=== PATIENT | male | born 1955 | race Caucasian/White ===

== ENCOUNTER → 2016-09-19 | Day surgery (SDC) | payer OTHER ==
[~2016-09-19] MED LIST: LEVO88TA2 PO; LIDOCAINE 1%/EPI 1:100,000 20 ML VIAL. IJ ONE; LIDOCAINE 1%/EPI 1:100,000 20 ML VIAL. ONE
[2016-09-19 09:55] VITALS: BP 141/85
--- NOTE | 2016-09-19 10:59 | PDOC ---
BRIEF OPERATIVE NOTE Date: Sep 19, 2016 Pre-Op Diagnosis Left forearm mass Post-Op Diagnosis Same Procedure Performed Excision of mass Surgeon Ricco Anesthesia Type: Local Blood Loss 5ml Specimens Obtained Left forearm skin mass Findings as above Complications None LISA PANTOJA MD Sep 19, 2016 10:59
--- NOTE | 2016-09-19 11:00 | DISCH ---
DISCHARGE INSTRUCTIONS Condition on Discharge Condition on Discharge: Stable Activity After Discharge Activity Instructions for Disc: No restrictions Diet after Discharge Diet after Discharge: Regular Contacting the DR. after DC Call your doctor for: If your condition worsens Follow-Up Follow up with: Dr Pantoja in 2 weeks LISA PANTOJA MD Sep 19, 2016 11:00
--- NOTE | 2016-09-19 17:17 | OP ---
DATE OF SURGERY: 09/19/2016 PREOPERATIVE DIAGNOSIS: Left forearm skin lesion. POSTOPERATIVE DIAGNOSIS: Left forearm skin lesion. PROCEDURE: Excision of skin lesion. SURGEON: Connor Pantoja M.D. INDICATIONS: The patient is a 61-year-old gentleman who has complained of an enlarging skin lesion on his left forearm that is getting larger over the last several months and somewhat tender to palpation. Procedure of excision of skin lesion was explained to the patient in detail. Risks, benefits were also discussed including bleeding and infection. Alternatives of this procedure were also discussed with the patient who seemed to understand and gave verbal and written consent to have the procedure performed. DESCRIPTION OF PROCEDURE: The patient was taken to the minor's room and placed in the supine position. The area over the left forearm over the mass was prepped and draped in usual sterile fashion using ChloraPrep. An area around the mass was injected with 0.25% Marcaine with epinephrine. Once this was anesthetized, an elliptical incision around the mass was made. This was sharply excised and sent for pathology. The mass was approximately 3 cm in diameter. The wound was then closed in 2 layers or running layer of 3-0 Vicryl deep subcuticular stitch and then the skin was reapproximated with 4-0 subcuticular Monocryl. Mastisol, Steri-Strips and Band-Aids and island dressing were applied. The patient tolerated the procedure well and was discharged to home in stable condition. All sponge, instrument counts listed as correct. Estimated blood loss 5 mL. CONNOR PANTOJA MD DR: NATALIE/hoa JOB#: [id number] / [id number] RASHIDA Powers PA-C
--- NOTE | 2016-09-20 13:58 | PATHOLOGY ---
PATHOLOGY REPORT * * * * * * * * FINAL DIAGNOSIS: Skin and subcutaneous tissue, left forearm skin lesion excision: - INVASIVE WELL DIFFERENTIATED SQUAMOUS CELL CARCINOMA INKED MARGINS OF EXCISION FREE OF NEOPLASM. - Solar degeneration. (JPM:all; d/t: 09/19/2016) REPORT ELECTRONICALLY SIGNED BY: Alan Cabrera M.D. DATE/TIME: 09/20/2016 13:57 * * * * * * * * GROSS PATHOLOGY: Received in formalin labeled "Rainer Thorntno, left arm skin lesion," is a 3.4 x 2.0 x 1.1 cm ellipse of skin displaying a well-circumscribed, raised, partially crusted and pink-figueroa to [id number] lesion which measures 1.5 x 1.3 x 0.4 cm. The margins are inked black. The specimen is sectioned into 14 pieces and entirely submitted in cassettes A1 through A6, with the tips placed in cassette A6. (CAA; 09/19/2016) INITIAL CPT CODE(S): A; 66732 Professional services performed [place] [facility] [place] [address] Technical services performed by [facility] at [address] [place] [address]. SPECIMEN(S) RECEIVED: A.Left arm skin lesion CLINICAL HISTORY: Left forearm skin lesion PATIENT: RAINER THORNTON /AGE: 1208/03/1955 (Age: 61) PATIENT #: [id number] ALT CASE #: SPECIMEN COLLECTION DATE: 09/19/2016 SPECIMEN RECEIVED DATE: 09/19/2016 [facility] - [address] [place] [address] - PHONE: [phone] * * * END OF REPORT * * *
== END | disposition home or self-care (01) ==
LOC: SURG 09:31
PROVIDERS: ATTEND Surgery
DX: C44.629 Squamous cell carcinoma of skin of left upper limb, including shoulder (principal); I10 Essential (primary) hypertension; E03.9 Hypothyroidism, unspecified; F17.200 Nicotine dependence, unspecified, uncomplicated
CPT/HCPCS: 11604; 12032; 88305; J3490